=== PATIENT | female | born 1995 | race Caucasian/White ===

== ENCOUNTER 2018-08-04 17:44 | Emergency (ER) | payer SELFPAY ==
[~2018-08-04] VITALS: Ht 149.9 cm; Wt 70.5 kg
[2018-08-04 17:46] VITALS: Ht 149.9 cm; Wt 70.5 kg
[2018-08-04] MEDS ORDERED: EC-NAPROSYN500 MG PO (18:10)
[2018-08-04] MEDS ORDERED: PENICILLIN V P500 MG PO (18:10)
[2018-08-04 19:35] VITALS: BP 130/75
== END 2018-08-04 19:30 | disposition home or self-care (01) ==
LOC: D.ER 17:44
DX: K08.89 Other specified disorders of teeth and supporting structures (principal); S02.5XXA Fracture of tooth (traumatic), initial encounter for closed fracture; X58.XXXA Exposure to other specified factors, initial encounter; Y93.89 Activity, other specified; Y92.019 Unspecified place in single-family (private) house as the place of occurrence of the external cause; F17.200 Nicotine dependence, unspecified, uncomplicated